=== PATIENT | male | born 1995 | race Caucasian/White ===

== ENCOUNTER 2017-09-06 12:01 | Emergency (ER) | payer OTHER ==
[~2017-09-06] VITALS: Ht 167.6 cm; Wt 70.8 kg
[2017-09-06 12:06] VITALS: BP 129/67
--- NOTE | 2017-09-06 12:25 | NUR ---
PATIENT TO BED 3 AT THIS TIME.
--- NOTE | 2017-09-06 12:40 | NUR ---
DR. RUELAS AT BEDSIDE.
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
--- NOTE | 2017-09-06 13:00 | NUR ---
PT BACK FROM CT VIA W/C BY TECH.
--- NOTE | 2017-09-06 13:55 | NUR ---
PT RETURNED BACK FROM CT VIA GURLUIS ACCOMPANIED BY CR[employer] UNION EXAMINER
[2017-09-06 14:13] VITALS: BP 126/70
--- NOTE | 2017-09-06 14:13 | NUR ---
Patient discharged with v/s stable. Written and verbal after care instructions given and explained. Patient verbalized understanding. Ambulatory with steady gait. All questions addressed prior to discharge. Advised to follow up with PMD.
--- NOTE | 2017-09-06 14:13 | NUR ---
PT WAS INFORMED THAT HE NEEDS TO FOLLOW UP WITH [place] [employer]; PT GIVEN INFORMATION OF [place] [employer]; PT VERBALIZED UNDERSTANDING AND AGREED WITH PLAN OF CARE. ER MD RUELAS AWARE OF PLAN OF CARE AND AGREED TO PLAN OF CARE.
== END 2017-09-06 14:13 | disposition home or self-care (01) ==
LOC: MED 12:01
DX: S06.0X0A Concussion without loss of consciousness, initial encounter (principal); Y04.2XXA Assault by strike against or bumped into by another person, initial encounter; Y93.89 Activity, other specified; Y92.89 Other specified places as the place of occurrence of the external cause; Y99.8 Other external cause status
CPT/HCPCS: 70450; 99284